=== PATIENT | female | born 1940 | race Caucasian/White ===

== ENCOUNTER 2018-10-01 06:12 | Observation (INO) | payer MEDICARE ==
[2018-09-26 15:03] LABS: BASOPHILS # (AUTO) 0.1 (0.0-0.1); BASOPHILS % 0.7 % (0.0-1.0); EOSINOPHILS # (AUTO) 0.1 (0.0-0.4); EOSINOPHILS % 0.8 % (0.0-6.0); HEMATOCRIT 42.1 % (34.2-44.1); HEMOGLOBIN 13.4 g/dL (12.0-16.0); LYMPHOCYTES # (AUTO) 2.5 (1.0-3.2); LYMPHOCYTES % 25.2 % (18.0-39.1); MEAN CORPUSCULAR HEMOGLOBIN 29.3 pg (28-32); MEAN CORPUSCULAR HGB CONC 31.8 g/dL (31-35); MEAN CORPUSCULAR VOLUME 92.1 fL (81-99); MONOCYTES % 10.6 % (4.4-11.3); NEUTROPHILS # (AUTO) 6.1 (2.1-6.9); NEUTROPHILS % 62.3 % (38.7-80.0); PLATELET COUNT 210 x10e3/uL (140-360); RED BLOOD COUNT 4.57 x10e6/uL (3.6-5.1); RED CELL DISTRIBUTION WIDTH 14.3 % (11.7-14.4)
[2018-09-26 15:26] LABS: INR 0.94; PROTHROMBIN TIME 13.4 seconds (11.9-14.5)
[2018-09-26 15:27] LABS: PARTIAL THROMBOPLASTIN TIME 26.3 seconds (23.8-35.5)
--- NOTE | 2018-09-26 15:27 | Diagnostic Imaging Report ---
EXAMINATION: CHEST 2 VIEWS INDICATION: ^PREOP FOR MANAGER CORPORATE COMMUNICATIONS PROCEDURE ^[id number] ^1503 COMPARISON: None FINDINGS: PA and lateral views TUBES and LINES: None. LUNGS: Lungs are well inflated. Lungs are clear. There is no evidence of pneumonia or pulmonary edema. PLEURA: No pleural effusion or pneumothorax. HEART AND MEDIASTINUM: The cardiomediastinal silhouette is unremarkable. BONES AND SOFT TISSUES: No acute osseous lesion. Exaggerated kyphosis and degenerative changes of thoracic spine. Soft tissues are unremarkable. UPPER ABDOMEN: No free air under the diaphragm. IMPRESSION: No acute thoracic abnormality. Signed by: Dr. True Wallace MD on 09/26/2018 3:24 PM
[2018-09-26 15:31] LABS: ALBUMIN 3.8 g/dL (3.5-5.0); ALBUMIN/GLOBULIN RATIO 1.2 (0.8-2.0); ANION GAP 15.4 mmol/L (8-16); CALCIUM 9.3 mg/dL (8.4-10.2); CREATININE, SERUM 0.94 mg/dL (0.57-1.11); POTASSIUM 4.4 mmol/L (3.5-5.1)
[2018-10-01] VITALS (16 sets, daily range): BP systolic 128–197; BP diastolic 56–81
[~2018-10-01] VITALS: Ht 165.1 cm; Wt 89.8 kg
[~2018-10-01 06:12] MED LIST: DETROL LA4 MG PO; LEVOTHYROXINE50 MCG PO
--- OUTSIDE RECORDS SUMMARY | 2018-10-01 06:14 | XMS REPORT ---
Author Author [facility] Address Unknown Phone Unavailable Care Team Providers Care Aircraft Captain Name Role Phone AVILA ASKEW Unavailable Unavailable Problems This patient has no known problems. Allergies, Adverse Reactions, Alerts This patient has no known allergies or adverse reactions. Medications This patient has no known medications. Results Test Description Test Time Test Comments Text Results Atomic Results Result Comments CHEST 2 VIEWS 2018-09-26 15:22:00 [facility] [address] [place] [address] Patient Name: MARINE LYNN MR #: [id number] : 1940 Age/Sex: 78/F Req #: [id number] [facility] Physician: Ordered by: AVILA ASKEW MD Report #: [id number] Location: MANAGED SERVICES CONSULTANT Room/Bed: Procedure: [id number] DX/CHEST 2 VIEWS Exam Date: 09/26/18 Exam Time: 1509 REPORT STATUS: Signed EXAMINATION: CHEST 2 VIEWS INDICATION: PRE OP FOR MANAGED SERVICES CONSULTANT PROCEDURE [id number] COMPARISON: None FINDINGS: PA and lateral views TUBES and LINES: None. LUNGS: Lungs are well inflated. Lungs are clear. There is no evidence of pneumonia or pulmonary edema. PLEURA: No pleural effusion or pneumothorax. HEART AND MEDIASTINUM: The cardiomediastinal silhouette is unremarkable. BONES AND SOFT TISSUES: No acute osseous lesion. Exaggerated kyphosis and degenerative changes of thoracic spine. Soft tissues are unremarkable. UPPER ABDOMEN: No free air under the diaphragm. IMPRESSION: No acute thoracic abnormality. Signed by: Dr. True Wallace MD on 09/26/2018 3:24 PM Dictated By: TRUE WALLACE MD 1524 Transcribed By: FRANNY on 09/26/18 1524 COPY TO: AVILA ASKEW MD
--- OUTSIDE RECORDS SUMMARY | 2018-10-01 06:14 | XMS REPORT | Clinical Summary ---
Author Author [facility] Address Unknown Phone Unavailable Care Team Providers Care Records Officer Name Role Phone Rob Brown MD PCP Unavailable Allergies No Known Allergies Medications End Date Status Medication Sig Dispensed Refills Start Date Active levothyroxine (SYNTHROID, TK 1 T PO QD 3 LEVOXYL) 50 mcg tablet 8 Active aspirin (ECOTRIN) 81 MG Take 81 mg by 0 enteric coated tablet mouth daily. Active ascorbic acid, vitamin C, Take 1,000 mg 0 (vitamin C) 1000 MG by mouth tablet daily. Active vitamin E 400 UNIT Take 400 0 capsule Units by mouth daily. Active alpha lipoic acid 200 mg Take 200 mg 0 tablet by mouth daily. Active tolterodine LA (DETROL TK ONE C PO 1 LA) 4 MG 24 hr capsule QHS 8 01/15/2018 Discontinued sodium,potassium,mag Use as 1 Bottle 0 sulfates (SUPREP BOWEL directed by 8 PREP KIT) 17.5-3.13-1.6 physician gram recon soln instructions Active Problems Not on file Encounters Care Team Description Date Type Specialty Rob Brown MD Right knee pain, unspecified chronicity 08/25/2018 Hospital Radiology Encounter Rob Brown MD Right knee pain, unspecified chronicity (Primary Dx) 08/25/2018 Transcribe Access Orders Rob Brown MD Screening breast examination 08/15/2018 Hospital Radiology Encounter Rob Brown MD Screening breast examination (Primary Dx) 08/07/2018 Transcribe Access Orders Betina Herron LVN 01/15/2018 Telephone GastroenterSaira French MD 01/13/2018 Lab Lab Saira Conley MD Colonoscopy 01/13/2018 Documentation GastroenterSaira French MD 01/10/2018 Telephone Gastroenterology Saira Conley MD Adenomatous polyp of colon, unspecified part of colon (Primary Dx) 12/03/2017 Office Visit Gastroenterology Saira Conley MD 12/03/2017 Telephone Gastroenterology Saira Conley MD 11/18/2017 Telephone Gastroenterology after 09/30/2017 Family History Medical History Relation Name Comments Colon cancer Neg Hx Colon polyps Neg Hx Social History Date Tobacco Use Types Packs/Day Years Used Never Smoker Smokeless Tobacco: Never Used Alcohol Use Drinks/Week oz/Week Comments No Sex Assigned at Date Recorded Not on file Industry Job Start Date Occupation Not on file Not on file Not on file Travel End Travel History Travel Start No recent travel history available. Last Filed Vital Signs Time Taken Vital Sign Reading 12/03/2017 9:58 AM ASSESSMENT SERVICES MANAGER Blood Pressure 131/76 12/03/2017 9:58 AM ASSESSMENT SERVICES MANAGER Pulse 71 12/03/2017 9:58 AM ASSESSMENT SERVICES MANAGER Temperature 36.5 C (97.7 F) - Respiratory Rate - - Oxygen Saturation - - Inhaled Oxygen - Concentration 12/03/2017 9:58 AM ASSESSMENT SERVICES MANAGER Weight 91.6 kg (202 lb) 12/03/2017 9:58 AM ASSESSMENT SERVICES MANAGER Height 165.1 cm (5' 5") 12/03/2017 9:58 AM ASSESSMENT SERVICES MANAGER Body Mass Index 33.61 Plan of Treatment Health Maintenance Due Date Last Done Comments SHINGLES VACCINES (1 of 1992 2) PNEUMOCOCCAL 2007 POLYSACCHARIDE VACCINE AGE 65 AND OVER PNEUMOCOCCAL-13 2007 INFLUENZA VACCINE 05/07/2018 COLON CANCER SCREENING 01/13/2021 01/13/2018 Procedures Comments Procedure Name Priority Date/Time Associated Diagnosis XR KNEE 4+ VW RIGHT Routine 08/25/2018 Right knee pain, 10:07 AM ASSESSMENT SERVICES MANAGER unspecified chronicity MAMMO BREAST SCREEN Routine 08/15/2018 Screening breast TOMOSYNTHESIS BILATERAL 10:23 AM ASSESSMENT SERVICES MANAGER examination SURGICAL PATHOLOGY Routine 01/13/2018 REQUEST 4:06 PM CDT after 09/30/2017 Results * XR Knee 4+ Vw Right (08/25/2018 10:07 AM ASSESSMENT SERVICES MANAGER) Narrative Performed At EXAMINATION:XR KNEE 4VW RIGHT HM [facility]ANT CLINICAL HISTORY:M25.561 Pain in right knee, m25.561 COMPARISON:None. Findings: There is narrowing of the lateral compartment with osteophytes in the lateral compartment. There is also narrowing in the patellofemoral compartment with virtual obliteration of the joint space and abundant osteophytes. There is also sparing of the medial compartment. The bones do appear mildly osteopenic. There is no fluid noted in the suprapatellar bursa. IMPRESSION: Arthritic changes as described [id number] Procedure Note Interface, Radiology Results Incoming - 08/25/2018 10:51 AM ASSESSMENT SERVICES MANAGER EXAMINATION: XR KNEE 4 VW RIGHT CLINICAL HISTORY: M25.561 Pain in right knee, m25.561 COMPARISON: None. Findings: There is narrowing of the lateral compartment with osteophytes in the lateral compartment. There is also narrowing in the patellofemoral compartment with virtual obliteration of the joint space and abundant osteophytes. There is also sparing of the medial compartment. The bones do appear mildly osteopenic. There is no fluid noted in the suprapatellar bursa. IMPRESSION: Arthritic changes as described [id number] Performing Organization Address City/[facility] Phone Number [facility] [address] [place] [address] * Mammo Breast Screen Tomosynthesis Bilateral (08/15/2018 10:23 AM ASSESSMENT SERVICES MANAGER) Narrative Performed At EXAMINATION: MAMMO BREAST SCREEN TOMOSYNTHESIS BILATERAL [facility] COMPARISON:Mammograms dated 05/2014 through 08/2017 TECHNIQUE: Bilateral digital screening mammography was performed with tomosynthesis and interpreted using computer-assisted detection. CLINICAL HISTORY: 77-year-old asymptomatic female. No personal or family history of breast malignancy. The patient presents for routine screening. FINDINGS: The breast tissue is predominantly fatty. There are no suspicious masses, calcifications or distortions in either breast.There has been no significant interval change compared to prior. IMPRESSION: No specific mammographic features of breast malignancy. BI-RADS 1:NEGATIVE Recommend comparison with physical examination. In the absence of new clinical findings, the patient should return for bilateral screening mammography in 1 year. This facility is accredited by the [employer] for Mammography. A negative x-ray report should not delay biopsy if a dominant or clinically suspicious mass is present.Not all cancers are identified by x-ray. [id number] Performing Organization Address City/State/Zipcode Phone Number [facility] [address] [place] [address] * Surgical pathology request (01/13/2018 4:06 PM CDT) [facility] DEPARTMENT OF PATHOLOGY AND GENOMIC MEDICINE Surgical pathology report See link below for PDF Lab [facility] DEPARTMENT OF Report PATHOLOGY AND GENOMIC MEDICINE Result status This is Final Report to [facility] DEPARTMENT OF [id number] PATHOLOGY AND GENOMIC MEDICINE Performing Organization Address City/State/[facility] Phone Number [facility] DEPARTMENT OF [address] [place] [address] PATHOLOGY AND GENOMIC MEDICINE after 09/30/2017 Insurance Payer Benefit Subscriber ID Type Phone Address Plan / Group AETNA MEDICARE AETNA xxxxxxxx HMO MEDICARE HMO/PPO [facility] Advance Directives Patient has advance care planning documents on file. For more information, lata verdugo contact: Emerson Kay [address] [place] [address]
[2018-10-01] MEDS ORDERED: IOPAMIDOL 370 MG/ML 200 ML INFUS..BTL INJ ONE ×2 (07:08→07:58)
[2018-10-01] MEDS ORDERED: SODIUM CHLORIDE 0.9% 1000ML 1,000 ML ONE (07:08)
[2018-10-01] MEDS ORDERED: LIDOCAINE HCL 2% LOCAL 20 ML VIAL ONE (07:08)
[2018-10-01] MEDS ORDERED: MIDAZOLAM HCL 2 MG/2 ML VIAL ONE (07:12)
[2018-10-01] MEDS ORDERED: FENTANYL CITRATE/PF 100MCG/2 ML INJ ONE (07:13)
[2018-10-01] MEDS ORDERED: HEPARIN SOD/SOD CHLORIDE 2,000 ML ONE (07:13)
[2018-10-01] MEDS ORDERED: VERAPAMIL HCL 2.5 MG/ML 2 ML VIAL ONE (07:20)
[2018-10-01] MEDS ORDERED: NITROGLYCERIN/D5W 200 MCG/ML 250 ML ONE (07:20)
[2018-10-01] MEDS ORDERED: HEPARIN SOD (PORCINE) 1000 UNIT/ML 30ML ONE (07:20)
[2018-10-01] MEDS ORDERED: SODIUM CHLORIDE 0.9% 50ML 50 ML ONE (07:50)
[2018-10-01] MEDS ORDERED: BIVALRIUDIN 250 MG/VIAL VIAL IV ONE (07:50)
[2018-10-01] MEDS ORDERED: ASPIRIN 325 MG TAB ONE (07:56)
[2018-10-01] MEDS ORDERED: CLOPIDOGREL BISULFATE 75 MG TAB ONE (07:56)
[2018-10-01] MEDS ORDERED: HEPARIN SOD/SOD CHLORIDE 1,000 ML ONE (08:09)
--- NOTE | 2018-10-01 08:40 | NUR ---
Received patient s/p [facility] with intervention. Patient a&o x 3. No bleeding or hematoma noted to right radial site. Family at bedside and vital signs stable. Patient oriented to room and surroundings and extra blankets provided. Stent card given to family member at bedside and educated on need for patient to place in wallet/purse. Patient and visitor verbalized understanding. Room requested and patient and visitor informed of need for admission statues. patient and visitor verbalized [id number]. Food tray ordered.
[2018-10-01] MEDS: SODIUM CHLORIDE 0.9% 1000ML 1,000 ML IV SCH ×2 (08:49→22:36)
[2018-10-01] MEDS: ASPIRIN 325 MG TAB PO SCH (09:00)
[2018-10-01] MEDS: CLOPIDOGREL BISULFATE 75 MG TAB PO SCH (09:00)
--- NOTE | 2018-10-01 09:17 | Operative Report ---
DATE OF PROCEDURE: October 01, 2018 PROCEDURES 1. Intracoronary stent placement in the right coronary artery. 2. Left heart catheterization. INDICATIONS 1. Angina. 2. Coronary artery disease. COMPLICATIONS: None. ANESTHESIA: Versed, fentanyl and lidocaine. TECHNIQUE: The right wrist was draped and prepped in the usual fashion. The right radial artery was anesthetized with lidocaine. Seldinger technique was used to place a 6-[place] sheath into the right femoral artery without difficulty. A TIGG catheter was used to selectively engage the right coronary artery and to selectively engage the left coronary artery. The patient was then bolused with Angiomax 500 and given 600 mg of Plavix. Attention was turned to the 95% stenosis in the proximal right coronary artery. An AR1 guiding catheter was used to selectively engage the right coronary artery. A Choice PT wire was used to cross the area of 95% stenosis. The area was predilated with a 2.5 x 12 mm balloon. A 3 x 20 mm Synergy stent was then deployed at 16 atmospheres for 30 seconds. The stent was then post dilated with a 3 x 15 mm noncompliant balloon. There was no residual stenosis. There were no complications. RESULTS: Are as follows: 1. There is a normal left main trunk. 2. There is a normal left anterior descending artery with some calcification proximally and about 30% stenosis in the midvessel. 3. There was a medium size AV circumflex artery, which gave rise to a large bifurcating obtuse marginal branch. There was minimal disease in the circumflex system. 4. There was a large dominant right coronary artery with 95% stenosis proximally. 5. The left ventriculogram was not done, but the patient had normal left ventricular size and function on a previous echocardiogram. CONCLUSION: Successful stent placement in the right coronary artery without complications. Job#: [id number] RI cc:JULES BARAHONA MD
--- NOTE | 2018-10-01 10:30 | NUR ---
Removed 3 cc's of air from right wrist TR band. No bleeding or hematoma noted. Vital signs stable.
--- NOTE | 2018-10-01 10:45 | NUR ---
Removed 3 cc's of air from right wrist TR band. No bleeding or hematoma noted. Vital signs stable. Family at bedside.
--- NOTE | 2018-10-01 11:00 | NUR ---
Rmoved 3 cc's of air from right wrist TR band. No bleeding or hematoma noted. patient awaiting TR band removal for admission room assignment.
--- NOTE | 2018-10-01 11:15 | NUR ---
Remainder of air removed from right wrist TR band. No bleeding or hematoma noted. Vital signs remain stable. Patient awaiting room assignment.
--- NOTE | 2018-10-01 12:00 | NUR ---
received report from medical lab technologist, patient arrived on floor on stretcher. Patient alert and oriented. Procedure site dressing on right wrist dry and in tact, soft around area, no hematoma. Bed in lowest position, call chand within reach.
--- OUTSIDE RECORDS SUMMARY | 2018-10-01 12:02 | XMS REPORT | Clinical Summary ---
Author Author [facility] Address Unknown Phone Unavailable Care Team Providers Care Route Driver Salesperson Name Role Phone Rob Brown MD PCP [...] Taken Vital Sign Reading 12/03/2017 9:58 AM INJECTION MOLDER Blood Pressure 131/76 12/03/2017 9:58 AM INJECTION MOLDER Pulse 71 12/03/2017 9:58 AM INJECTION MOLDER Temperature 36.5 C (97.7 F) - Respiratory Rate - - Oxygen Saturation - - Inhaled Oxygen - Concentration 12/03/2017 9:58 AM INJECTION MOLDER Weight 91.6 kg (202 lb) 12/03/2017 9:58 AM INJECTION MOLDER Height 165.1 cm (5' 5") 12/03/2017 9:58 AM INJECTION MOLDER Body Mass Index 33.61 Plan of Treatment Health Maintenance Due Date Last Done Comments SHINGLES VACCINES (1 of 1992 2) PNEUMOCOCCAL 2007 POLYSACCHARIDE VACCINE AGE 65 AND OVER PNEUMOCOCCAL-13 2007 INFLUENZA VACCINE 05/07/2018 COLON CANCER SCREENING 01/13/2021 01/13/2018 Procedures Comments Procedure Name Priority Date/Time Associated Diagnosis XR KNEE 4+ VW RIGHT Routine 08/25/2018 Right knee pain, 10:07 AM INJECTION MOLDER unspecified chronicity MAMMO BREAST SCREEN Routine 08/15/2018 Screening breast TOMOSYNTHESIS BILATERAL 10:23 AM INJECTION MOLDER examination SURGICAL PATHOLOGY Routine 01/13/2018 REQUEST 4:06 PM CDT after 09/30/2017 Results * XR Knee 4+ Vw Right (08/25/2018 10:07 AM INJECTION MOLDER) Narrative Performed At EXAMINATION:XR KNEE 4VW RIGHT [...] suprapatellar bursa. IMPRESSION: Arthritic changes as described [id number] Procedure Note Interface, Radiology Results Incoming - 08/25/2018 10:51 AM INJECTION MOLDER EXAMINATION: XR KNEE 4 VW RIGHT CLINICAL [...] suprapatellar bursa. IMPRESSION: Arthritic changes as described [id number] Performing Organization Address City/[facility] Phone Number [facility] [address] [place] [address] * Mammo Breast Screen Tomosynthesis Bilateral (08/15/2018 10:23 AM INJECTION MOLDER) Narrative Performed At EXAMINATION: MAMMO BREAST SCREEN [...] year. This facility is accredited by the [employer] for Mammography. A negative x-ray report should not delay biopsy if a dominant or clinically suspicious mass is present.Not all cancers are identified by x-ray. [id number] Performing Organization Address City/State/Zipcode Phone Number [facility] [address] [place] [address] * Surgical pathology request (01/13/2018 4:06 PM CDT) [facility] DEPARTMENT OF PATHOLOGY AND GENOMIC MEDICINE Surgical pathology report See link below for PDF Lab [facility] DEPARTMENT OF Report PATHOLOGY AND GENOMIC MEDICINE Result status This is Final Report to [facility] DEPARTMENT OF [id number] PATHOLOGY AND GENOMIC MEDICINE Performing Organization Address City/State/[facility] Phone Number [facility] DEPARTMENT OF [address] [place] [address] PATHOLOGY AND GENOMIC MEDICINE after 09/30/2017 Insurance Payer Benefit Subscriber ID Type Phone Address Plan / Group AETNA MEDICARE AETNA xxxxxxxx HMO MEDICARE HMO/PPO [facility] Advance Directives Patient has advance care planning documents on file. For more information, lata verdugo contact: Emerson Kay [address] [place] [address]
[2018-10-01] MEDS ORDERED: ZOLPIDEM TARTRATE 5 MG TAB PO PRN (15:00)
--- NOTE | 2018-10-01 19:00 | NUR ---
rounded with helpdesk administrator nurse, patient aware of change. Call chand within reach, bed in lowest position.
--- NOTE | 2018-10-01 20:00 | NUR ---
pt received. pt assessed. no ss of distress noted. no co pain at time. right wrist drsg cdi. tele in place. will cont to follow poc. call chand within reach.
[2018-10-01] MEDS ORDERED: TOLTERODINE TARTRATE 4 MG CAPCR PO SCH ×2 (21:00)
[2018-10-01] MEDS ORDERED: ATORVASTATIN 20 MG TAB PO SCH (21:00)
[2018-10-02 04:00] VITALS: BP 167/70
--- NOTE | 2018-10-02 04:16 | NUR ---
pt resting. no ss of distress noted. call chand within reach.
[2018-10-02 05:19] LABS: BASOPHILS # (AUTO) 0.1 (0.0-0.1); BASOPHILS % 0.6 % (0.0-1.0); EOSINOPHILS # (AUTO) 0.1 (0.0-0.4); EOSINOPHILS % 1.3 % (0.0-6.0); HEMATOCRIT 38.9 % (34.2-44.1); HEMOGLOBIN 12.4 g/dL (12.0-16.0); LYMPHOCYTES # (AUTO) 2.1 (1.0-3.2); LYMPHOCYTES % 24.2 % (18.0-39.1); MEAN CORPUSCULAR HEMOGLOBIN 28.8 pg (28-32); MEAN CORPUSCULAR HGB CONC 31.9 g/dL (31-35); MEAN CORPUSCULAR VOLUME 90.5 fL (81-99); MONOCYTES # (AUTO) 1.1 (0.2-0.8); MONOCYTES % 12.5 % (4.4-11.3); NEUTROPHILS # (AUTO) 5.3 (2.1-6.9); NEUTROPHILS % 61.1 % (38.7-80.0); PLATELET COUNT 175 x10e3/uL (140-360); RED CELL DISTRIBUTION WIDTH 14.4 % (11.7-14.4)
[2018-10-02 05:47] LABS: ALANINE AMINOTRANSFERASE 18 IU/L (0-55); ALBUMIN 3.1 g/dL (3.5-5.0); ALKALINE PHOSPHATASE 53 IU/L (40-150); ANION GAP 12.6 mmol/L (8-16); BLOOD UREA NITROGEN 16 mg/dL (7-26); BUN/CREATININE RATIO 19 (6-25); CALCIUM 8.9 mg/dL (8.4-10.2); CARBON DIOXIDE 24 mmol/L (22-29); CHLORIDE 108 mmol/L (98-107); CREATININE, SERUM 0.83 mg/dL (0.57-1.11); EST GLOMERULAR FILTRATION RATE > 60 ML/MIN (60-); GLUCOSE 98 mg/dL (74-118); POTASSIUM 4.6 mmol/L (3.5-5.1); SODIUM 140 mmol/L (136-145)
[2018-10-02] MEDS ORDERED: LEVOTHYROXINE SODIUM 50 MCG TAB PO SCH (06:00)
[2018-10-02 07:30] VITALS: BP 167/70
--- NOTE | 2018-10-02 07:45 | NUR ---
pt resting in bed, no c/o pain or s/s distress. dr palacio on unit, dc pt. per pt, dr palacio gave her rx yesterday for plavix and lisinopril. dayana avalos on unit.
[2018-10-02 08:09] VITALS: BP 161/69
--- NOTE | 2018-10-02 08:14 | Consultation ---
DATE OF CONSULTATION: PULMONARY/CRITICAL CARE CONSULTATION CHIEF COMPLAINT: Dyspnea and coronary artery disease. HISTORY OF PRESENT ILLNESS: Patient is a 78-year-old woman. She has a history of shortness of breath and chest tightness. Outpatient evaluation showed reversible defects with coronary artery disease. Patient went to the laboratory asst and had an angioplasty without difficulty. She has been observed overnight. She received antiplatelet therapy, and has no complaints this morning. PAST SURGICAL HISTORY: 1. Status post partial hysterectomy. 2. Status post cardiac characterization. MEDICAL HISTORY: 1. Hypothyroidism. 2. Coronary artery disease. FAMILY HISTORY: No family history of coronary artery disease. SOCIAL HISTORY: No smoking or alcohol use. ALLERGIES: NO KNOWN DRUG ALLERGIES. REVIEW OF SYSTEMS: No headache or fever. No neck pain. No chest pain. No difficulty breathing. No abdominal pain. No nausea or vomiting. No difficulty ambulating. PHYSICAL EXAMINATION: VITAL SIGNS: Patient is afebrile. The blood pressure is 167/70 and the pulse is 84. The oxygenation is 95%. HEENT: Shows no facial swelling or erythema. Oropharynx is normal. LYMPHATIC: Shows no submandibular, cervical, or supraclavicular adenopathy. CARDIAC: Reveals a regular rate and rhythm with a normal S1 and S2. CHEST: Auscultation of lungs reveals clear breath sounds bilaterally. There is no wheezing. ABDOMEN: Soft and nontender. There is no rebound, no guarding. EXTREMITIES: There is no leg edema or calf tenderness. LABORATORY DATA: Blood counts are within normal limits. Metabolic profile is normal. Chest x-ray shows no active disease. IMPRESSION: 1. Coronary artery disease with angioplasty. 2. Hypothyroidism. PLAN: 1. Discharge home. 2. Antiplatelet therapy. 3. Statins. 4. Follow up with cardiology in 1 week. Job#: [id number]
[2018-10-02] MEDS: CLOPIDOGREL BISULFATE 75 MG TAB PO SCH (08:45)
[2018-10-02] MEDS: ASPIRIN 325 MG TAB PO SCH (08:45)
[2018-10-02] MEDS ORDERED: TOLTERODINE TARTRATE 4 MG CAPCR PO SCH (09:00)
--- NOTE | 2018-10-02 09:00 | NUR ---
SOCIAL WORK INITIAL ASSESSMENT Nurse Practitioner Manager to bedside to discuss plan of care with patient/family. CM/SW role and care transitions discussed. Anticipated discharge plan discussed along with duration of care. CM/SW discussed patients right to make decisions in care. CM/SW work hours given. Patient lives: IN SENIOR APARTMENT BY SELF DOWNSTAIRS Admit/Transfer: VIA HOME POA/Emergency contact: DAUGHTER LEN PARIKH [phone] Current/Previous Home Health: NONE PCP/Follow-up Care: [facility] Current/Previous DME: NONE Other Services: NONE Employment Status: RETIRED Areas of Concerns: NONE Referral Needs: NONE Education Needs: NONE IMM/COLLINS given and signed (if applicable): COLLINS Goal for discharge: RETURN HOME INDEPENDENTLY CM/SW left business card at the bedside with contact information. Name and number was also written on the patients whiteboard. Patient verbalized understanding of discussion. CM will follow-up with ongoing discharge and transition of care needs.
--- NOTE | 2018-10-02 09:08 | NUR ---
reviewed dc instructions with pt, family at bedside. verbalized understanding. vs stable.
== END 2018-10-02 09:05 | disposition home or self-care (01) ==
LOC: CATH LAB 06:12 → PACU V 08:51 → IMCU 12:00
PROVIDERS: ADMIT Internal Medicine Cardiovascular Disease; ATTEND Internal Medicine Cardiovascular Disease
DX: I25.119 Atherosclerotic heart disease of native coronary artery with unspecified angina pectoris (principal); E03.9 Hypothyroidism, unspecified; Z79.52 Long term (current) use of systemic steroids
CPT/HCPCS: 36415 ×2; 71046; 80053 ×2; 85025 ×2; 85610; 85730; 92928; 93005; 93458; C1725; C1769; C1874; C1887; G0378 ×2; J0583; J1644; J2001; J2250; J7030; Q9967